=== PATIENT | male | born 1965 | race Caucasian/White ===

== ENCOUNTER 2016-10-01 11:28 | Inpatient (IN) ==
--- NOTE | 2016-10-01 09:57 | Discharge Summary ---
Date of Encounter: 10/04/16 Time of Encounter: 07:33 - Discharge Diagnosis (1) Arthritis of right hip Priority: Primary Status: Acute (2) Hypertension Priority: Secondary Status: Chronic Qualifiers: Hypertension type: essential hypertension Qualified Code(s): I10 - Essential (primary) hypertension (3) Hyperlipidemia Priority: Secondary Status: Chronic Qualifiers: Hyperlipidemia type: other hyperlipidemia Qualified Code(s): E78.4 - Other hyperlipidemia (4) Morbid obesity with BMI of 40.0-44.9, adult Priority: Secondary Status: Chronic (5) RAYSHAWN (acute kidney injury) Priority: Primary Status: Acute (6) Acute blood loss anemia Priority: Primary Status: Acute - Discharge Medications Home Medications: Aspirin Enteric Coated [Aspirin EC] 325 mg PO Q12H #30 tablet. 10/01/16 [Rx] Ibuprofen [Motrin] 800 mg PO Q8HR PRN 10/01/16 [History] Lisinopril/Hydrochlorothiazide [Zestoretic 20-12.5 mg Tablet] 1 each PO DAILY [History] OxyCODONE Immed Rel [Roxicodone 5 MG] 5 - 10 mg PO Q6HR PRN #30 tablet 10/01/16 [Rx] Allergies/Adverse Reactions: Allergies No Known Allergies Allergy (Verified 10/01/16 12:25) Primary care physician: Harley Peacock - Patient Status Disposition: Transfer Inpatient Rehab Fac Condition: Good Functional capacity at discharge: uses cane/walker Overall status at discharge: patient is progressing back to baseline - Discharge Instructions Follow Up With: Harley Peacock [Primary Care Provider] - - Hospital Course Hospital course: Mr. Amado is a 50 year old male patient dc stable condition, elevation of kid function resolved on dc with hydration. received PT and antibiotics - Time Spent with Patient Total time spent providing and/or coordinating discharge services:
--- NOTE | 2016-10-01 11:46 | History & Physical Report ---
Date of Encounter: 10/01/16 Time of Encounter: 11:46 24 Hour HP Update - Instructions Instructions: If the History and Physical is less than 30 days old and was completed prior to A.M. admission and or procedure and has NOT been updated on calendar day of procedure please complete this update prior to performing procedure. - Update Patient reports changes in Medical Condition: No Changes in assessment/condition: No Changes in Medication: No Preop tests/diagnostics Reviewed: Yes Surgery Remains Indicated: Yes Consent for Planned Operative Procedure(s) Verified: Yes - Pre-Operative Checklist Preoperative Checklist Indicated: No Prophylactic Antibiotic Ordered: Yes Is VTE Prophylaxis Indicated?: Yes
[2016-10-01] MEDS ORDERED: CeFAZolin Pre 3,000 MG/100 ML 3,000 MG/100 ML BAG IVPB ONE (11:55)
[2016-10-01] MEDS ORDERED: Ringers Solution, Lactated 1,000 ML IVC SCH ×2 (12:00→15:33)
--- NOTE | 2016-10-01 12:03 | Anesthesia Evaluation PreOp ---
Date of Encounter: 10/01/16 Time of Encounter: 12:01 - Past History Planned Operation: r neri Cardiac History: HTN, Hyperlipidemia Pulmonary History: Denies Any Significant HX, Snore KINDERGARTNER History: Denies Any Significant HX Other Medical History: Denies Any Significant HX Anesthesia History: No Prior Anesthetic Complications, Past Anesthesia (r shoulder) Alcohol Use: none Drug use: none Medications and Allergies Aspirin Enteric Coated [Aspirin EC] 325 mg PO Q12H #30 tablet. 10/01/16 [Rx] OxyCODONE Immed Rel [Roxicodone 5 MG] 5 - 10 mg PO Q6HR PRN #30 tablet 10/01/16 [Rx] Allergies No Known Allergies Allergy (Unverified 09/21/16 15:13) - Meds/Allergy Pre-op Review Medications Reviewed: Yes Allergies Reviewed: Yes Beta Blockers on Current Med List: No Anesthesia Results - Labs Laboratory Tests 09/21/16 09/21/16 09/21/16 15:13 15:13 15:13 Hgb 14.0 Hct 42.1 Plt Count 324 PT 11.7 INR 1.1 APTT 32.6 Sodium 136 Potassium 3.8 Creatinine 1.04 - Imaging EKG: report reviewed (sr, mod ivcd) Anesthesia Exam O2 Sat Height 1.74 m Height 1.74 m Height 1.74 m Weight 124.284 kg Weight 124.284 kg Weight 124.284 kg O2 Sat by Pulse Oximetry 95 Vital Signs Temp Pulse Resp BP Pulse Ox 97.8 F 82 18 134/84 95 10/01/16 12:01 10/01/16 12:01 10/01/16 12:01 10/01/16 12:01 10/01/16 12:01 Height: 1.74 Weight: 124 NPO (# of Hours): >8 - HEENT Pupil (Motor): Pupils equal, EOMI Mallampati: II Teeth: Poor dentition Oral Opening: Greater than 3 (decent underbite, full neck ext) - KINDERGARTNER LOC: Oriented KINDERGARTNER Motor: Normal RUE, Normal LUE, Normal RLE, Normal LLE, Normal Face KINDERGARTNER Sensory: Normal: RUE, LUE, RLE, LLE, Face - Cardiac Rhythm: Regular Murmur: None - Pulmonary Breath Sounds: bilateral Clear Respiratory Effort: Symmetrical Anesthesia Assess/Plan ASA Score: 3 Modified [place] Scale for Level of Consciousness: Cooperative, oriented, and tranquil Anesthetic Plan: General Monitoring Plan: Standard Monitors Recovery Plan: PACU
[2016-10-01] MEDS ORDERED: *HR* Midazolam HCl 2 MG/2 ML VIAL ONE (12:06)
[2016-10-01] MEDS ORDERED: *HR* Propofol 200 MG/20 ML VIAL IVP ONE (12:06)
[2016-10-01] MEDS ORDERED: *HR* FentaNYL (PF) 100 MCG/2 ML VIAL ONE (12:06)
[2016-10-01] MEDS ORDERED: *HR* Labetalol 100 MG/20 ML MDV IVP PRN (12:50)
[2016-10-01] MEDS ORDERED: Naloxone 0.4 MG/ML INJ IVP PRN ×2 (12:50→15:33)
[2016-10-01] MEDS ORDERED: Lidocaine -MPF 2% 2 ML VIAL ONE (13:12)
[2016-10-01] MEDS ORDERED: *HR* Rocuronium Bromide 50 MG/5 ML VIAL ONE (13:12)
[2016-10-01] MEDS ORDERED: Dexamethasone 4 MG/ML VIAL ONE ×2 (13:12→14:43)
[2016-10-01] MEDS ORDERED: *HR* Succinylcholine 200 MG/10 ML VIAL IVP ONE (13:12)
[2016-10-01] MEDS ORDERED: Neostigmine Methylsulfate 3 MG/3 ML SYRINGE ONE (13:50)
--- NOTE | 2016-10-01 13:53 | Orthopedic Operative Note ---
Date of procedure: 10/01/16 Pre-op diagnosis: Right hip arthritis Post-op diagnosis: same Procedure: Procedure: Right Total Hip Replacment Estimated blood loss: 200 cc Hardware: Biomet DM Cup: 60 G7 fin cup Femoral size 13 echo full profile lateralized stem Head: +0 head with Procedural Notes: Patient with a significant flexion contracture of the hip. Grade 4 arthritic changes femoral head acetabular socket. Operative procedure: The patient was brought to the operating room and placed on the operating room table. After general anesthesia was administered the patient was placed in the lateral decubitus position with the operative leg up. All pressure points were padded appropriately and the head was stabilized in the neutral position. The operative extremity was prepped and draped in the sterile surgical fashion patient received IV antibiotic prior to skin incision. A standard posterior approach is made to the operative hip, the incision was made through the skin and subcutaneous tissue hemostasis was obtained with Bovie cautery. Using careful sharp dissection the fascia was identified and incised exposing the external rotators. The external rotators were released off the greater trochanter and tagged with #2 FiberWire suture. The capsule was T'd open and the hip was brought into internal rotation. Patient noted to have grade 4 arthritic changes femoral head. The femoral neck cut was made at the appropriate level. An anterior capsulotomy was performed for the anterior retractor. Soft tissues removed from the acetabulum. Patient noted to have grade 4 arthritic changes acetabulum. Acetabulum was first reamed medially, and then reamed in 15 degrees of anteversion and 45 degrees off the horizontal. It was reamed up to the appropriate size 60 The appropriate-sized 60 acetabular cup was impacted in place in 15 degrees of anteversion and 45 degrees off the horizontal. This had good fit and fixation. The hip was brought back in to internal rotation and prepared with the kickboxing instructor followed by the canal finder followed by broaching process in 20 degrees anteversion. It was broached up to the appropriate size 13 The femoral implant was impacted in place in 20 degrees of anteversion. Trial reduction found the hip to be stable with 0 head and . The trials were removed and the real implants were impacted in place. The hip was reduced, patient had apparent equal leg lengths. The hip had excellent stability with forward flexion to 90 degrees adduction of 30 degrees and internal rotation of 60 degrees. The hip had no shuck. The hips after 2 minutes with a Betadine saline solution. It was irrigated out with 2 L of pulse irrigation. The external rotators were reattached to drill holes in the greater trochanter. Fascia was closed with a running #2 PDS suture. The deep tissue was irrigated and closed deep with #1 PDS suture superficially with 0 PDS suture and skin was closed with Dermabond and skin kj. The patient was placed in a sterile dressing and abduction pillow. The patient was extubated and transferred to the recovery room in stable condition. Anesthesia: GETA Surgeon: Jostin Jean-Baptiste Condition: stable Disposition: PACU
[2016-10-01] MEDS: *HR* HYDROmorphone (PF) 1 MG/ML SYRINGE IVP PRN ×2 (14:26→14:37)
[2016-10-01] MEDS ORDERED: Esmolol 100 MG/10 ML VIAL IVP ONE ×2 (14:37→14:53)
[2016-10-01] MEDS ORDERED: Ketorolac 30 MG/ML VIAL ONE (14:37)
[2016-10-01] MEDS ORDERED: Ondansetron 4 MG/2 ML VIAL ONE (14:43)
[2016-10-01 14:47] LABS: Hematocrit 41.4 % (37.5-50.1); Hemoglobin 13.8 g/dL (12.9-16.9)
--- NOTE | 2016-10-01 14:53 | Anesthesia Evaluation Post Op ---
Date of Encounter: 10/01/16 Time of Encounter: 15:00 - Vital Signs Vital Signs: Vital Signs/O2 Sat/Glucose, Most Current Temp Pulse Resp BP Pulse Ox 10/01/16 14:30 97.6 F 62 16 102/71 99 10/01/16 14:20 66 16 105/52 97 10/01/16 14:10 63 16 112/66 98 10/01/16 14:00 97.9 F 62 14 130/55 96 10/01/16 12:01 97.8 F 82 18 134/84 95 - Lungs Lungs: Clear Ascult./Percussion - Airway Airway: Non-obstructed - Cardiovascular Regular Rate - Mental Status Mental Status: Baseline Status - Pain Pain Scale: 0 - Hydration Hydration: NPO - Discharge PostOp Status: Transfer Patient to floor
[2016-10-01] MEDS ORDERED: Temazepam 15 MG CAPSULE PO PRN (15:33)
[2016-10-01] MEDS ORDERED: Acetaminophen 325 MG TABLET PO PRN (15:33)
[2016-10-01] MEDS ORDERED: Ibuprofen 800 MG TABLET PO PRN (15:33)
[2016-10-01] MEDS ORDERED: Ondansetron 4 MG/2 ML VIAL IVP PRN (15:33)
[2016-10-01] MEDS ORDERED: MOM Conc 10 ML UD.LIQ PO PRN (15:33)
[2016-10-01] MEDS ORDERED: Sennosides 8.6 MG TABLET PO PRN (15:33)
[2016-10-01] MEDS ORDERED: *HR* HYDROmorphone (PF) 1 MG/ML SYRINGE IVP PRN (15:33)
[2016-10-01] MEDS: *HR* OxyCODONE Immed Rel 5 MG TABLET PO PRN ×2 (15:57→23:06)
[2016-10-01] MEDS: *HR* Enoxaparin 30 MG/0.3 ML SYRINGE SQ SCH (16:29)
[2016-10-01] MEDS: Ascorbic Acid 500 MG TABLET PO SCH (16:29)
[2016-10-01] MEDS ORDERED: *HR* Enoxaparin 30 MG/0.3 ML SYRINGE SQ SCH (18:00)
[2016-10-01] MEDS: ceFAZolin 3,000 MG in D5% in Water 100 ML IVPB SCH (20:10)
[2016-10-02] MEDS: *HR* Enoxaparin 30 MG/0.3 ML SYRINGE SQ SCH ×2 (04:29→17:03)
[2016-10-02] MEDS: ceFAZolin 3,000 MG in D5% in Water 100 ML IVPB SCH (04:29)
[2016-10-02] MEDS: *HR* OxyCODONE Immed Rel 5 MG TABLET PO PRN ×2 (04:37→17:03)
[2016-10-02 05:06] LABS: Hematocrit 35.1 % (37.5-50.1)
[2016-10-02 05:21] LABS: Calcium 8.5 mg/dL (8.6-10.8); Potassium 4.5 mEq/L (3.5-4.5)
[2016-10-02 05:43] LABS: Hemoglobin 12.2 g/dL (12.9-16.9)
[2016-10-02] MEDS ORDERED: 0.9 % Sodium Chloride 500 ML IVC ONE (08:19)
--- NOTE | 2016-10-02 08:39 | Orthopedics Progress Note ---
Date of Encounter: 10/02/16 Time of Encounter: 08:38 - Assessment and Plan (1) Arthritis of right hip Current Visit: Yes Status: Acute (2) Hypertension Current Visit: Yes Status: Chronic Qualifiers: Hypertension type: unspecified secondary hypertension Qualified Code(s): I15.9 - Secondary hypertension, unspecified; I15 - Secondary hypertension (3) Hyperlipidemia Current Visit: Yes Status: Chronic Qualifiers: Hyperlipidemia type: other hyperlipidemia Qualified Code(s): E78.4 - Other hyperlipidemia (4) Morbid obesity with BMI of 40.0-44.9, adult Current Visit: Yes Status: Chronic Subjective Interval history: Patient was seen this morning doing well without complaints. Afebrile vital signs stable. Operative extremity: Neurovascularly intact Dressing clean dry and intact Calves nontender Assessment and plan: Continue with postoperative care Hematocrit 35 creatinine 2. giving bolus recheck in pm Objective Vital signs: Vital Signs Temp Pulse Resp BP Pulse Ox 10/02/16 06:18 98.7 F 74 20 101/64 97 10/02/16 04:31 98.3 F 81 16 103/67 97 10/02/16 03:32 97 10/01/16 23:58 97.8 F 84 17 103/63 97 10/01/16 18:15 98.3 F 89 14 126/71 96 10/01/16 17:23 98.4 F 96 16 114/75 97 10/01/16 16:20 97.7 F 78 16 93/56 95 10/01/16 15:34 97.5 F L 75 15 114/75 96 10/01/16 15:11 97.8 F 66 15 105/70 96 10/01/16 15:00 97.2 F L 66 16 108/60 94 L 10/01/16 14:50 64 16 105/59 94 L 10/01/16 14:40 63 16 117/56 94 L 10/01/16 14:30 97.6 F 62 16 102/71 99 10/01/16 14:20 66 16 105/52 97 10/01/16 14:10 63 16 112/66 98 10/01/16 14:00 97.9 F 62 14 130/55 96 10/01/16 12:01 97.8 F 82 18 134/84 95 Intake and Output 10/01/16 10/02/16 10/02/16 23:59 07:59 15:59 Intake Total 800 / 800 900 / 900 Balance 800 / 800 900 / 900 Intake: IV Fluids 100 / 100 100 / 100 Ancef 3,000 MG In 100 / 100 100 / 100 Dextrose 5% 100 ML @ 200 mls/hr IVPB Q8H REPLACED BY [facility] Rx#: [id number] Oral 700 / 700 800 / 800 - Labs CBC & BMP: 10/02/16 04:27 10/02/16 04:27 Labs: Abnormal lab results Hgb 12.2 g/dL (12.9-16.9) L D 10/02/16 04:27 Hct 35.1 % (37.5-50.1) L 10/02/16 04:27 Sodium 130 mEq/L (136-145) L 10/02/16 04:27 BUN 29 mg/dL (8-26) H 10/02/16 04:27 Creatinine 2.02 mg/dL (0.72-1.25) H 10/02/16 04:27 Est GFR ( Amer) 42 (> 60) L 10/02/16 04:27 Est GFR (Non-Af Amer) 35 (> 60) L 10/02/16 04:27 Glucose 124 mg/dL (70-99) H 10/02/16 04:27 Calculated Osmolality 277 (280-300) L 10/02/16 04:27 Calcium 8.5 mg/dL (8.6-10.8) L 10/02/16 04:27 - VTE Documentation of Mechanical Device: Venous foot pump, device Consult Discharge Plan - Plan Referrals: Harley Peacock [Primary Care Provider] -
[2016-10-02] MEDS ORDERED: Lisinopril-HCTZ 20-12.5mg TABLET PO SCH (09:00)
[2016-10-02] MEDS: Multivit/Ca/Min/Fe/FA 1 TAB TABLET PO SCH (09:07)
[2016-10-02] MEDS: Ascorbic Acid 500 MG TABLET PO SCH ×2 (09:07→17:03)
[2016-10-02] MEDS: 0.9 % Sodium Chloride 1,000 ML IVC SCH ×2 (10:30→19:17)
[2016-10-02 20:24] LABS: Albumin 3.2 g/dL (3.5-5.0); Phosphorous 4.9 mg/dL (2.3-4.7); Potassium 4.5 mEq/L (3.5-4.5)
[2016-10-03] MEDS: 0.9 % Sodium Chloride 1,000 ML IVC SCH ×2 (03:23→12:28)
[2016-10-03 06:15] LABS: Hematocrit 31.1 % (37.5-50.1); Hemoglobin 10.7 g/dL (12.9-16.9)
[2016-10-03 06:31] LABS: Calcium 8.4 mg/dL (8.6-10.8); Potassium 4.5 mEq/L (3.5-4.5)
[2016-10-03] MEDS: *HR* Enoxaparin 30 MG/0.3 ML SYRINGE SQ SCH ×2 (06:37→17:25)
--- NOTE | 2016-10-03 06:44 | Orthopedics Progress Note ---
Date of Encounter: 10/03/16 Time of Encounter: 06:43 - Assessment and Plan (1) Arthritis of right hip Current Visit: Yes Status: Acute (2) Hypertension Current Visit: Yes Status: Chronic Qualifiers: Hypertension type: unspecified secondary hypertension Qualified Code(s): I15.9 - Secondary hypertension, unspecified; I15 - Secondary hypertension (3) Hyperlipidemia Current Visit: Yes Status: Chronic Qualifiers: Hyperlipidemia type: other hyperlipidemia Qualified Code(s): E78.4 - Other hyperlipidemia (4) Morbid obesity with BMI of 40.0-44.9, adult Current Visit: Yes Status: Chronic Subjective Interval history: Patient was seen this morning doing well without complaints. Afebrile vital signs stable. Operative extremity: Neurovascularly intact Dressing clean dry and intact Calves nontender Assessment and plan: Continue with postoperative care Kidney function improving, will have evaluated by hospitalist Objective Vital signs: Vital Signs Temp Pulse Resp BP Pulse Ox 10/03/16 05:17 98.4 F 77 18 162/71 94 L 10/03/16 00:23 97.9 F 92 18 131/84 96 10/02/16 20:58 98.4 F 90 16 120/67 97 10/02/16 14:59 98.9 F 90 18 130/75 95 10/02/16 11:13 98.5 F 64 20 137/76 97 Intake and Output 10/02/16 10/02/16 10/03/16 15:59 23:59 07:59 Intake Total 860 / 860 1240 / 1240 1500 / 1500 Output Total 800 / 800 1750 / 1750 2550 / 2550 Balance 60 / 60 -510 / -510 -1050 / -1050 Intake: IV Fluids 500 / 500 1000 / 1000 1000 / 1000 0.9 % Sodium Chloride 1, 1000 / 1000 1000 / 1000 000 ML @ 125 mls/hr IVC . Q8H IAN Rx#:[id number] 0.9 % Sodium Chloride 500 500 / 500 ML @ 1875 mls/hr IVC . Q16M ONE Rx#:[id number] Oral 360 / 360 240 / 240 500 / 500 Output: Urine 800 / 800 1750 / 1750 2550 / 2550 Other: Meal Breakfast Dinner Percent of Meal Consumed 100% 60% # Voids 1 - Labs CBC & BMP: 10/03/16 05:27 10/03/16 05:27 Labs: Abnormal lab results Hgb 10.7 g/dL (12.9-16.9) L D 10/03/16 05:27 Hct 31.1 % (37.5-50.1) L 10/03/16 05:27 Sodium 132 mEq/L (136-145) L 10/03/16 05:27 BUN 39 mg/dL (8-26) H 10/03/16 05:27 Creatinine 1.95 mg/dL (0.72-1.25) H 10/03/16 05:27 Est GFR ( Amer) 44 (> 60) L 10/03/16 05:27 Est GFR (Non-Af Amer) 36 (> 60) L 10/03/16 05:27 Glucose 115 mg/dL (70-99) H 10/03/16 05:27 Calcium 8.4 mg/dL (8.6-10.8) L 10/03/16 05:27 Phosphorus 4.9 mg/dL (2.3-4.7) H 10/02/16 20:06 Albumin 3.2 g/dL (3.5-5.0) L 10/02/16 20:06 - VTE Documentation of Mechanical Device: Venous foot pump, device Consult Discharge Plan - Plan Referrals: Harley Peacock [Primary Care Provider] -
[2016-10-03 09:39] LABS: Bilirubin,Urine Negative (Negative); Blood,Urine Trace (Negative); Clarity,Urine Clear (Clear); Color,Urine Yellow (Yellow); Glucose,Urine (UA) Normal (Normal); Ketones,Urine Negative (Negative); Leukocyte Esterase,Urine Negative (Negative); Nitrite,Urine Negative (Negative); Protein,Urine Negative (Neg-Trace); Specific Gravity,Urine 1.007 (1.010-1.025); Urobilinogen,Urine Normal (Normal)
[2016-10-03 09:42] LABS: Bacteria,Urine None Seen per hpf (None-Few); Hyaline Casts,Urine None Seen per lpf (None-Few); RBC,Urine 0-3 per hpf (0-3); Squamous Epithelial Cell,Urine None Seen per lpf (None-Few); WBC,Urine 0-3 per hpf (0-3)
[2016-10-03] MEDS: Ascorbic Acid 500 MG TABLET PO SCH ×2 (09:51→17:25)
[2016-10-03] MEDS: Multivit/Ca/Min/Fe/FA 1 TAB TABLET PO SCH (09:51)
--- NOTE | 2016-10-03 11:03 | Internal Medicine Consult Note ---
<Karen Deluca - Last Filed: 10/03/16 12:02> Date of Encounter: 10/03/16 Time of Encounter: 11:01 - Assessment and Plan (1) RAYSHAWN (acute kidney injury) Current Visit: Yes Status: Acute Assessment and plan: 1 patient has had increase of creatinine baseline is less than 1-up to 2.31 today 1.95. Patient has been receiving NSAIDs as well as Sarath hydrochlorothiazide. We will hold these medications for now. Will resume once back to baseline 2 patient has received IV fluids overnight with improvement of creatinine will continue with IV fluids and monitor creatinine 3 we will avoid nephrotoxins 4 monitor intake and output 5 renal ultrasound 6 urinalysis (2) Hypertension Current Visit: Yes Status: Chronic Assessment and plan: 1 history of hypertension presently on lisinopril hydrochlorothiazide will hold these for now due to increasing creatinine. Presently blood pressure is controlled systolics actually mid 100s. We will continue to monitor continue with IV fluids for now Qualifiers: Hypertension type: essential hypertension Qualified Code(s): I10 - Essential (primary) hypertension (3) Arthritis of right hip Current Visit: Yes Status: Acute Assessment and plan: 1 history of osteoarthritis pain interfering with ADLs underwent total hip replacement on the -manage per ortho team 2 pain control continue with pain medications (4) DVT prophylaxis Current Visit: Yes Status: Acute Assessment and plan: 1 on [facility] Internal Medicine - CN: HPI - Data of Consult Patient: new to practice Consult date: 10/03/16 Requesting Physician: Jostin Jean-Baptiste MD - Consult Narrative Reason for consult: medical managment of HTN/RAYSHAWN History of present illness: Mr. Amado is a 50 year old male with history of hypertension osteoarthritis tobacco abuse. According to patient he has been experiencing increasing pain and right hip associated to osteoarthritis which is impairing his ADLs. He underwent a total right hip replacement on 11/01/2016. Surgery/postoperative was uneventful, however it appears that yesterday patient's creatinine is elevated to 2.31-his baseline appears to be around 1. Hospitalists have been consulted for medical management of AK I hypertension. The patient denies any history of renal disease. He has been taking Motrin as well on lisinopril hydrochlorothiazide suspect this is related to AK I. He was given IV fluids overnight and does appear that creatinine is trending down. Presently the patient denies any pain or discomfort he is hemodynamically stable at this time. I reviewed this case with Dr. Orozco who agrees with plan. Past Med Surg Social Fam HX - Past Medical History Psychiatric history: no psych history - Social History Smoking Status: Never smoker Smokeless Tobacco Status: Yes Alcohol use: none Drug use: none - Family History Mother Living Status: Hx Family Cancer: Yes Father Living Status: Hx Family Cardiac Disorders: Yes ([place]) All systems: reviewed and no additional remarkable complaints except as stated - Cardiovascular Cardiovascular ROS IM: edema - Musculoskeletal Musculoskeletal ROS IM: arthralgias, limited range of motion Internal Medicine - CN: Meds Aspirin Enteric Coated [Aspirin EC] 325 mg PO Q12H #30 tablet. 10/01/16 [Rx] Ibuprofen [Motrin] 800 mg PO Q8HR PRN 10/01/16 [History] Lisinopril/Hydrochlorothiazide [Zestoretic 20-12.5 mg Tablet] 1 each PO DAILY [History] OxyCODONE Immed Rel [Roxicodone 5 MG] 5 - 10 mg PO Q6HR PRN #30 tablet 10/01/16 [Rx] Allergies No Known Allergies Allergy (Verified 10/01/16 12:25) Internal Medicine - CN: Exam - Constitutional Vitals: Temp Pulse Resp BP Pulse Ox 98.6 F 57 16 117/72 98 10/03/16 07:08 10/03/16 07:08 10/03/16 07:08 10/03/16 07:08 10/03/16 07:08 General appearance IM: Present: A&O X 3, obese, answers questions appropriately - Head Head exam: Present: atraumatic, normal inspection - Eye Additional comments: strabismus - Respiratory Respiratory exam: Present: CTAB - Cardiovascular Cardiovascular exam IM: Present: RRR, +S1, +S2 - GI/Abdominal GI/Abdominal exam IM: Present: normal bowel sounds, soft - Extremities Exam Extremities exam IM: Present: pedal edema - Expanded Lower Extremities Exam Upper Leg exam: Present: swelling, tenderness (incision to R hip well approx with no redness or drainage ) - Neurological Exam Neurological exam: Present: alert, oriented X3, no focal deficits, strengths equal and symetr throughout - Expanded Neurological Exam Coma Scale Eye Opening: Spontaneous Coma Scale Motor Response: Obeys Commands Coma Scale Verbal Response: Oriented Coma Scale Total: 15 Internal Medicine - CN: Reslt - Labs CBC & Chem 7: 10/03/16 05:27 10/03/16 05:27 Labs: Short CBC 10/03/16 Range/Units 05:27 Hgb 10.7 L D (12.9-16.9) g/dL Hct 31.1 L (37.5-50.1) % BMP 10/02/16 10/03/16 20:06 05:27 Sodium 128 L 132 L Potassium 4.5 4.5 Chloride 98 104 Carbon Dioxide 21 19 BUN 39 H D 39 H Creatinine 2.31 H 1.95 H Glucose 135 H 115 H Calcium 8.0 L 8.4 L Liver Function 10/02/16 Range/Units 20:06 Albumin 3.2 L (3.5-5.0) g/dL Urine 10/03/16 Range/Units 09:30 Urine Color Yellow (Yellow) Urine Clarity Clear (Clear) Urine pH 6.0 (5.0-8.0) pH Units Ur Specific [place] 1.007 L (1.010-1.025) Urine Protein Negative (Neg-Trace) mg/dL Urine Glucose (UA) Normal (Normal) mg/dL Consult Discharge Plan - Plan Referrals: Harley Peacock [Primary Care Provider] - <Jun Orozco - Last Filed: 10/03/16 19:11> Internal Medicine - CN: HPI - Data of Consult Requesting Physician: Jostin Jean-Baptiste MD - Consult Narrative History of present illness: Attending statement: I examined this patient and my medical decision-making was reviewed with the SALES ADVISORY MANAGER/PA/Advanced Practice Nurse/Resident Physician. I agree with the documented findings, disposition and treatment plan as described except to the extent set forth below. Pt in NAD, heart RRR, S1S2, abd obese, nondistended. no suprapubic tenderness. US distended bladder >900ml, non visualization L kidney, hypertrophy of R kidney. UA bland Plan: bladder scan, iv fluids, hold nephrotoxins, f/u BUN, Cr Internal Medicine - CN: Exam - Constitutional Vitals: Temp Pulse Resp BP Pulse Ox 99.0 F 92 16 110/71 95 10/03/16 10:59 10/03/16 10:59 10/03/16 10:59 10/03/16 10:59 10/03/16 10:59 Internal Medicine - CN: Reslt - Labs CBC & Chem 7: 10/03/16 05:27 10/03/16 05:27 Labs: Short CBC 10/03/16 Range/Units 05:27 Hgb 10.7 L D (12.9-16.9) g/dL Hct 31.1 L (37.5-50.1) % BMP 10/02/16 10/03/16 20:06 05:27 Sodium 128 L 132 L Potassium 4.5 4.5 Chloride 98 104 Carbon Dioxide 21 19 BUN 39 H D 39 H Creatinine 2.31 H 1.95 H Glucose 135 H 115 H Calcium 8.0 L 8.4 L Liver Function 10/02/16 Range/Units 20:06 Albumin 3.2 L (3.5-5.0) g/dL Urine 10/03/16 Range/Units 09:30 Urine Color Yellow (Yellow) Urine Clarity Clear (Clear) Urine pH 6.0 (5.0-8.0) pH Units Ur Specific [place] 1.007 L (1.010-1.025) Urine Protein Negative (Neg-Trace) mg/dL Urine Glucose (UA) Normal (Normal) mg/dL - Impressions Impressions Retroperitoneum Ultrasound 10/03/16 13:30 IMPRESSION: 1. No visualization of the right kidney, suggesting marked atrophy or congenital absence given lack of reported nephrectomy. 2. Left nephromegaly consistent with compensatory hypertrophy. Heterogeneous left renal parenchyma could be related to underlying parenchymal disease. 3. Marked urinary bladder distention with a postvoid residual volume of 334 ml. 4. Incidental note of mild hepatic steatosis. D/ / Chaka Grullon MD / Chaka Grullon MD Interpreting Provider: Chaka Grullon MD
[2016-10-03] MEDS: *HR* OxyCODONE Immed Rel 5 MG TABLET PO PRN (17:27)
[2016-10-04] MEDS: 0.9 % Sodium Chloride 1,000 ML IVC SCH ×3 (00:20→09:54)
[2016-10-04 05:40] LABS: Hematocrit 29.1 % (37.5-50.1); Hemoglobin 9.6 g/dL (12.9-16.9)
[2016-10-04 05:53] LABS: BUN/Creatinine Ratio 22 (6-26); Carbon Dioxide 21 mEq/L (19-29); Chloride 105 mEq/L (98-109); Glucose 107 mg/dL (70-99); Osmolality,Calculated 284 (280-300); Potassium 4.4 mEq/L (3.5-4.5); Sodium 134 mEq/L (136-145); eGFR For African Americans > 60 (> 60); eGFR For Non-African Americans 59 (> 60)
[2016-10-04 06:02] LABS: Blood Urea Nitrogen 28 mg/dL (8-26)
[2016-10-04] MEDS: *HR* Enoxaparin 30 MG/0.3 ML SYRINGE SQ SCH (06:43)
--- NOTE | 2016-10-04 07:36 | Orthopedics Progress Note ---
Date of Encounter: 10/04/16 Time of Encounter: 07:35 - Assessment and Plan (1) Arthritis of right hip Current Visit: Yes Status: Acute (2) Hypertension Current Visit: Yes Status: Chronic Qualifiers: Hypertension type: essential hypertension Qualified Code(s): I10 - Essential (primary) hypertension (3) Hyperlipidemia Current Visit: Yes Status: Chronic Qualifiers: Hyperlipidemia type: other hyperlipidemia Qualified Code(s): E78.4 - Other hyperlipidemia (4) Morbid obesity with BMI of 40.0-44.9, adult Current Visit: Yes Status: Chronic (5) RAYSHAWN (acute kidney injury) Current Visit: Yes Status: Acute (6) Acute blood loss anemia Current Visit: Yes Status: Acute Subjective Interval history: Patient was seen this morning doing well without complaints. Afebrile vital signs stable. Operative extremity: Neurovascularly intact Dressing clean dry and intact Calves nontender Assessment and plan: Continue with postoperative care Kidney function normalized, hct 29 dc today Objective Vital signs: Vital Signs Temp Pulse Resp BP Pulse Ox 10/04/16 06:50 98.2 F 93 16 139/74 95 10/04/16 03:51 98.4 F 87 16 136/78 96 10/04/16 00:00 97.5 F L 100 17 108/66 96 10/03/16 20:00 97.2 F L 103 17 109/65 96 10/03/16 10:59 99.0 F 92 16 110/71 95 10/03/16 07:08 98.6 F 57 16 117/72 98 Intake and Output 10/03/16 10/03/16 10/04/16 15:59 23:59 08:59 Intake Total 1000 / 1000 1400 / 1400 1000 / 1000 Output Total 800 / 800 1550 / 1550 1450 / 1450 Balance 200 / 200 -150 / -150 -450 / -450 Intake: IV Fluids 1000 / 1000 1000 / 1000 0.9 % Sodium Chloride 1, 1000 / 1000 1000 / 1000 000 ML @ 125 mls/hr IVC . Q8H IAN Rx#:[id number] Oral 1400 / 1400 Output: Urine 800 / 800 1550 / 1550 1450 / 1450 - Labs CBC & BMP: 10/04/16 04:52 10/04/16 04:52 Labs: Abnormal lab results Hgb 9.6 g/dL (12.9-16.9) L 10/04/16 04:52 Hct 29.1 % (37.5-50.1) L 10/04/16 04:52 Sodium 134 mEq/L (136-145) L 10/04/16 04:52 BUN 28 mg/dL (8-26) H D 10/04/16 04:52 Creatinine 1.29 mg/dL (0.72-1.25) H 10/04/16 04:52 Est GFR (Non-Af Amer) 59 (> 60) L 10/04/16 04:52 Glucose 107 mg/dL (70-99) H 10/04/16 04:52 Calcium 8.0 mg/dL (8.6-10.8) L 10/04/16 04:52 Phosphorus 4.9 mg/dL (2.3-4.7) H 10/02/16 20:06 Albumin 3.2 g/dL (3.5-5.0) L 10/02/16 20:06 Ur Specific [place] 1.007 (1.010-1.025) L 10/03/16 09:30 Urine Blood Trace (Negative) H 10/03/16 09:30 - VTE Documentation of Mechanical Device: Venous foot pump, device Consult Discharge Plan - Plan Referrals: Harley Peacock [Primary Care Provider] -
--- NOTE | 2016-10-04 08:15 | Internal Med Progress Note ---
<Aman Denson - Last Filed: 10/04/16 08:13> Date of Encounter: 10/04/16 Time of Encounter: 08:13 - Assessment and plan (1) RAYSHAWN (acute kidney injury) Current Visit: Yes Status: Acute Assessment and plan: may be 2nd to receiving NSAIDs and lisiopril/HTCZ in setting of congenital agenesis of right kidney. Patients SCr imrpoved to 1.29. renal US shows absent right kidney and nephromegaly with left kidney measureing 16.7cm. Urinalysis WNL WIll have patient follow up outpatint with [employer] and repeat BMP ok for d/c (2) Congenital single kidney Current Visit: Yes Status: Chronic Assessment and plan: as stated above. unkown etiology (3) Arthritis of right hip Current Visit: Yes Status: Acute Assessment and plan: hx of osteoarthritis interfering with ADLS. POD 3 s/p total hip replacement management as per ortho team. Pain is controlled. (4) DVT prophylaxis Current Visit: Yes Status: Acute Assessment and plan: continue lovenox. (5) Hypertension Current Visit: Yes Status: Chronic Assessment and plan: controlled. with hold lisinopril. Will d/c home med of lisinopril/HCTZ and start on amlodipine 5mg as patient is more likely to be prone to kidney injury due to having one kidney. Qualifiers: Hypertension type: essential hypertension Qualified Code(s): I10 - Essential (primary) hypertension - Subjective Interval history: s/p right total hip replacement. Patient has no new complaints. He was sitting up in a chair this morning. He denies CP, palpitations, sob, cough, abdominal pain, nausea, leg pain/swelling. He has right hip pain with movement. - Constitutional Vitals: Temp Pulse Resp BP Pulse Ox 98.2 F 93 16 139/74 95 10/04/16 06:50 10/04/16 06:50 10/04/16 06:50 10/04/16 06:50 10/04/16 06:50 General appearance: Present: A&O X 3, obese, answers questions appropriately - Head Head exam: Present: atraumatic, normocephalic - Eye Eye exam: Present: PERRL, conjuntiva pink, sclera anicteric - Neck Neck exam general surgery: Present: supple, trachea midline. Absent: lymphadenopathy - Respiratory Respiratory exam: Present: CTAB. Absent: accessory muscle use, rales, rhonchi, wheezes - Cardiovascular Cardiovascular exam: Present: RRR, +S1, +S2. Absent: diastolic murmur, gallop, rubs, systolic murmur - GI/Abdominal GI/Abdominal exam: Present: normal bowel sounds, soft, no peritoneal signs. Absent: distended, tenderness - Extremities Exam Extremities exam: Present: warm, radial pulses palpable and symetrical. Absent : calf tenderness, cyanotic, pedal edema - Neurological Exam Neurological exam: Present: CN II-XII intact, oriented X3, no focal deficits. Absent: pronater drift, facial droop, speech deficit - Skin Skin exam: Present: dry, intact Internal Medicine: Result - Labs CBC & Chem 7: 10/04/16 04:52 10/04/16 04:52 Labs: Short CBC 10/04/16 Range/Units 04:52 Hgb 9.6 L (12.9-16.9) g/dL Hct 29.1 L (37.5-50.1) % BMP 10/04/16 04:52 Sodium 134 L Potassium 4.4 Chloride 105 Carbon Dioxide 21 BUN 28 H D Creatinine 1.29 H Glucose 107 H Calcium 8.0 L Urine 10/03/16 Range/Units 09:30 Urine Color Yellow (Yellow) Urine Clarity Clear (Clear) Urine pH 6.0 (5.0-8.0) pH Units Ur Specific [place] 1.007 L (1.010-1.025) Urine Protein Negative (Neg-Trace) mg/dL Urine Glucose (UA) Normal (Normal) mg/dL - Impressions Impressions Retroperitoneum Ultrasound 10/03/16 13:30 IMPRESSION: 1. No visualization of the right kidney, suggesting marked atrophy or congenital absence given lack of reported nephrectomy. 2. Left nephromegaly consistent with compensatory hypertrophy. Heterogeneous left renal parenchyma could be related to underlying parenchymal disease. 3. Marked urinary bladder distention with a postvoid residual volume of 334 ml. 4. Incidental note of mild hepatic steatosis. D/ / Chaka Grullon MD / Chaka Grullon MD Interpreting Provider: Chaka Grullon MD - VTE Documentation of Mechanical Device: Venous foot pump, device Consult Discharge Plan - Plan Additional Instructions: Patient will be d/c on amlodipine 5mg daily. Lisinopril/HCTA d/c due to RAYSHAWN. Aspirin d/c as well. Repeat BMP on wednesday. Continue drinking plenty of fluids. Patient will follow up whit nephrology outpatient for future management of congenital renal agenesis. Referrals: Harley Peacock [Primary Care Provider] - Kota Brandon DO [Partnered Physician] - (RAYSHAWN post operatively. Has hx of congenitial agenisis of right kidney. ) Prescriptions: Amlodipine [Norvasc] 5 mg PO DAILY #30 tablet <Willam Cummings T - Last Filed: 10/04/16 11:42> - Constitutional Vitals: Temp Pulse Resp BP Pulse Ox 98.6 F 87 16 144/85 97 10/04/16 10:33 10/04/16 10:33 10/04/16 10:33 10/04/16 10:33 10/04/16 10:33 Internal Medicine: Result - Labs CBC & Chem 7: 10/04/16 04:52 10/04/16 04:52 Labs: Short CBC 10/04/16 Range/Units 04:52 Hgb 9.6 L (12.9-16.9) g/dL Hct 29.1 L (37.5-50.1) % BMP 10/04/16 04:52 Sodium 134 L Potassium 4.4 Chloride 105 Carbon Dioxide 21 BUN 28 H D Creatinine 1.29 H Glucose 107 H Calcium 8.0 L - Impressions Impressions Retroperitoneum Ultrasound 10/03/16 13:30 IMPRESSION: 1. No visualization of the right kidney, suggesting marked atrophy or congenital absence given lack of reported nephrectomy. 2. Left nephromegaly consistent with compensatory hypertrophy. Heterogeneous left renal parenchyma could be related to underlying parenchymal disease. 3. Marked urinary bladder distention with a postvoid residual volume of 334 ml. 4. Incidental note of mild hepatic steatosis. D/ / Chaka Grullon MD / Chaka Grullon MD Interpreting Provider: Chaka Grullon MD - Attending Attestation I examined this patient and my medical decision-making was reviewed with the BRAKE RIDER/PA/Advanced Practice Nurse/Resident Physician. I agree with the documented findings, disposition and treatment plan as described except to the extent set forth below. 50 Y/O M admitted for R hip replacement Hospitalist team was consulted for RAYSHAWN Patient has a PMH of R renal agenesis and MDRR , HTN, OA Patient is seen at bedside Denies new complains Physical exam VSS, anisotropia R eye with iridectomy, webbed neck, slow seech and mentation. Chest is clear, abdomen is benign RAYSHAWN has improved, primary team plans to discharge patient Discontinue ACEI/Diuretics and discharge home on [facility] Follow up with PCP, recommend nephrology follow up as patient has only one kidney Rest of details as in resident's documentation....
[2016-10-04] MEDS: Ascorbic Acid 500 MG TABLET PO SCH (09:44)
[2016-10-04] MEDS: Multivit/Ca/Min/Fe/FA 1 TAB TABLET PO SCH (09:44)
[2016-10-04 10:33] VITALS: BP 144/85
== END 2016-10-04 13:40 | DRG 470 ==
LOC: SAMDAY 11:28 → 3NENU 14:55 → SUATTDRO 14:55
PROVIDERS: ADMIT Orthopaedic Surgery; ATTEND Internal Medicine